=== PATIENT | female | born 1990 | race Caucasian/White ===

== ENCOUNTER 2018-09-16 01:14 | Day surgery (SDC) | payer OTHER ==
[2018-09-16 01:45] VITALS: BMI 35.2
[2018-09-16] MEDS ORDERED: Acetaminophen/Codeine 30-300mg Tablet PO PRN (01:55)
--- NOTE | 2018-09-16 06:58 | ULT ---
LIMITED OB ULTRASOUND: INDICATIONS: patient with abdominal pain and a history of prior uterine surgery. FINDINGS: There is a live intrauterine gestation with cardiac activity of 157 beats per minute documented . The fetus is in a breech lie, and the placenta is located primarily in a posterior position. Amni otic fluid volume is subjectively normal. No evidence of placenta previa. Dedicated anatomic survey not performed. Cervical length is approximately 4.3 cm. No evidence of significant free pelvic fluid. IMPRESSION: Live intrauterine gestation, as described above. As necessary, continued imaging followup may be obt ained. POS: [facility]
--- NOTE | 2018-09-16 08:43 | PRG ---
DATE OF SERVICE: 09/16/2018 PRIMARY OB PHYSICIAN: Arnoldo Renee DO [place] CHIEF COMPLAINT: Pelvic pain. HISTORY OF PRESENT ILLNESS: The patient is a 28-year-old, G2, P1 female with an intrauterine at 21 weeks' gestation, who is presenting with sharp abdominal infraumbilical pain when she coughs. The patient reports that she has had this persistent cough for 3 weeks now and has just been started on a Z-Peter by her primary physician today. The patient's concern is the pain that she has been feeling and is worried given her complications to this . The patient reports that she had a surgical intervention for IUD removal last February resulting in an unknown damage to the uterus. It is unclear to the patient exactly what was done , but does report that the surgery took 8 hours to perform. She has seen [facility] and understands that she needs to be delivered between 32 and 34 weeks. She understands that she is at risk for uterine rupture and is worried that the pain as a result of her coughing has evidence that she may be tearing her uterus. The patient reports that when she is not coughing that the pain is absent. She reports the pain is sharp and stabbing. The patient also reports that she has been having some spotting in the last couple of days that she notices couple of clots when she has wiped. The patient denies leakage of fluid. She denies persistent vaginal bleeding. She denies uterine contractions. She denies fever, fall, or trauma. She denies headache or chest pain. She does have some baseline shortness of breath with . She does report nausea with some vomiting that she attributes to her coughing. The patient denies diarrhea or constipation. She denies any new rashes. Denies hip problems, knee problems, or muscle weakness. Denies urinary urgency or frequency. PAST MEDICAL HISTORY: Minerva's thyroid disorder. PAST SURGICAL HISTORY: She has had this laparoscopy converted to laparotomy for removal of migrated IUD with unknown damage to the uterus. SOCIAL HISTORY: Denies drug, alcohol, or tobacco use. ALLERGIES: NO KNOWN DRUG ALLERGIES. OB LABS: Unavailable at the time of dictation. She has a history of preeclampsia with her previous and prior at 34 weeks. REVIEW OF SYSTEMS: Per HPI. PHYSICAL EXAMINATION: VITAL SIGNS: Blood pressure 128/72, heart rate of 96, temperature 98.5. GENERAL: She appears to be in no acute distress. She does appear concerned, worried, and confused. She is alert, oriented, cooperative, and pleasant to interact with. HEAD: Normocephalic, atraumatic. LUNGS: Clear to auscultation bilaterally. HEART: Regular rate and rhythm. ABDOMEN: Soft and gravid. She does have some tenderness to palpation infraumbilically, difficult to assess whether it is musculoskeletal or intraperitoneal. CERVICAL: Has been deferred. heart tracing, Doppler heart tones were present in the 140s. The bedside ultrasound was performed and final report not available. In images seen by myslef the fetus was breech with normal fluid appearing and no free fluid extrauterine and with what appears to be a completely intact normal uterine wall. She does have a visible scar where the likely occured. ASSESSMENT AND PLAN: The patient is a 28-year-old G2, P1 female with an intrauterine at 21 weeks with a persistent cough for the last 3 weeks, just started on azithromycin today with pain associated with cough. Pain by history is most consistent with musculoskeletal pain. There is no evidence of labor for dehiscence or by ultrasound or any events visible by ultrasound. Fetus appears to be reassuring visibly. The patient was given 2 Tylenol No. 3 for cough suppression, which seems to have helped a lot with her coughing. The patient has been given reassurance based on findings today. She has been given a prescription of Tylenol No. 3, #15, to be taken at home as needed 1 to 2 tablets q.4 hours for cough. She has been counselled to continue on her antibiotics. She also has instructions to keep her appointment with Dr. Renee and to seek medical attention should she experience worsening bleeding or pain, should this cough be related to an infectious process, treatable by azithromycin, she should start feeling much better from that standpoint in the next few days. Job ID: [id number] [facility]
== END 2018-09-16 03:40 | disposition home health service (06) ==
LOC: L&D/OP 01:14
PROVIDERS: ATTEND Obstetrics & Gynecology
DX: O99.89 Other specified diseases and conditions complicating pregnancy, childbirth and the puerperium (principal); R10.2 Pelvic and perineal pain; R05 Cough; O32.1XX0 Maternal care for breech presentation, not applicable or unspecified; O99.283 Endocrine, nutritional and metabolic diseases complicating pregnancy, third trimester; E06.3 Autoimmune thyroiditis; Z3A.21 21 weeks gestation of pregnancy; Z98.890 Other specified postprocedural states
CPT/HCPCS: 76815; 99283

== ENCOUNTER 2018-09-22 12:34 | Outpatient (CLI) | payer OTHER ==
--- NOTE | 2018-09-22 13:10 | RAD ---
PA AND LATERAL VIEWS OF THE CHEST: HISTORY: Cough. FINDINGS: The heart size is normal. The lungs are expanded without focal areas of consolidation, pneumothorace s, or pleural effusions. No acute osseous abnormalities are seen. IMPRESSION: No radiographic evidence of acute cardiopulmonary process. POS: [facility]
== END 2018-09-22 12:35 | disposition home or self-care (01) ==
LOC: BICRAD 12:34
PROVIDERS: ATTEND Obstetrics & Gynecology
DX: R05 Cough (principal)
CPT/HCPCS: 71046

== ENCOUNTER 2018-12-01 09:58 | Outpatient (CLI) | payer OTHER ==
--- NOTE | 2018-12-01 10:28 | RAD ---
EXAM: Chest PA and lateral: HISTORY: Dyspnea COMPARISON: 09/22/2018 FINDINGS: Heart size:Within normal limits. Lungs:Clear of acute process. No confluent pneumonia, overt edema, pleural effusion, or other acute process. IMPRESSION: No significant acute intrathoracic disease. Stable exam.
== END 2018-12-01 09:59 | disposition home or self-care (01) ==
LOC: RAD 09:58
PROVIDERS: ATTEND Internal Medicine
DX: R06.00 Dyspnea, unspecified (principal)
CPT/HCPCS: 71046

== ENCOUNTER 2018-12-16 11:45 | Day surgery (SDC) | payer OTHER ==
[2018-12-16 12:32] VITALS: BMI 39.0
[2018-12-16 12:39] LABS: Amnisure Internal Control QC ACCEPTABLE (ACCEPTABLE); Amnisure Test No Membranes Rupture (No Rupture)
[2018-12-16] MEDS ORDERED: hydrALAZINE 20 MG/ML VIAL SLOW IVP PRN (13:56)
[2018-12-16] MEDS ORDERED: Lactated Ringer's 1,000 ML IV SCH ×2 (14:00)
[2018-12-16 14:16] VITALS: BP 105/64; TEMP 98.9
--- NOTE | 2018-12-16 14:59 | PRG ---
DATE OF SERVICE: 12/16/2018 REASON FOR PRESENTATION: A 34 weeks gestation with nausea, vomiting, and possible leakage of fluid with abdominal pain. HISTORY OF PRESENT ILLNESS: Ms Devin Tolbert is a 28-year-old 2, para 1, previous x1, who presents complaining of nausea and vomiting for 3 days on occasion not continuously, leaking fluid for 2 months and abdominal pain. She seemed quite uncomfortable on presentation, but this resolved during her presentation here. LINE WALKER HISTORY: for preeclampsia at 34 weeks 5 pounds. Previous . Blood type O positive. Antibody negative. Pap negative. Rubella immune. VDRL nonreactive. Hepatitis B, GC, and chlamydia negative. The patient has had nausea throughout her . Previous was for removal of IUD at time of . PAST MEDICAL HISTORY: Asthma. PAST SURGICAL HISTORY: and IUD removal. ALLERGIES: DENIES. MEDICATIONS: 1. vitamins. 2. Montelukast. 3. Zofran. SOCIAL HISTORY: Denies tobacco, alcohol, or drug use. FAMILY HISTORY: Noncontributory. REVIEW OF SYSTEMS: Noncontributory. PHYSICAL EXAMINATION: GENERAL: White female, no acute distress after 1 L IV fluids. VITAL SIGNS: Blood pressure 128/72, pulse 85, respirations 18, and temperature 98.6. HEENT: Within normal limits. LUNGS: Clear to auscultation bilaterally. HEART: Regular rhythm. ABDOMEN: Soft and nontender with only occasional uterine irritability noted. Fundal height of 34 cm. FHTs 130s to 140s. VULVA: Without lesions. VAGINA: Discharge cervix, soft, closed, long, cephalic presentation. EXTREMITIES: No clubbing, cyanosis, or edema. AmniSure was negative. IMPRESSION AND PLAN: The patient received approximately 0.5 L of lactated Ringer IV fluids. She had impressive recovery. Feeling better with no contractions and improved nausea. She is discharged home. Continue on the Zofran. ER precautions. Job ID: [id number]
== END 2018-12-16 14:17 | disposition home health service (06) ==
LOC: L&D/OP 11:45
PROVIDERS: ATTEND Obstetrics & Gynecology
DX: O21.2 Late vomiting of pregnancy (principal); O99.89 Other specified diseases and conditions complicating pregnancy, childbirth and the puerperium; N89.8 Other specified noninflammatory disorders of vagina; R10.9 Unspecified abdominal pain; O99.513 Diseases of the respiratory system complicating pregnancy, third trimester; J45.909 Unspecified asthma, uncomplicated; Z3A.34 34 weeks gestation of pregnancy; Z79.899 Other long term (current) drug therapy
CPT/HCPCS: 84112; 96360; 96361; 99283

== ENCOUNTER 2019-01-03 05:16 | Inpatient (IN) | payer OTHER ==
[2019-01-03] MEDS ORDERED: Bicitra 30 ML UDCUP PO SCH (05:55)
[2019-01-03] MEDS ORDERED: hydrALAZINE 20 MG/ML VIAL SLOW IVP PRN ×2 (05:55→11:51)
[2019-01-03] MEDS ORDERED: CEFAZOLIN 2 GM in Premix Bag 1 BAG IVPB SCH (05:55)
[2019-01-03] MEDS ORDERED: Promethazine HCl 25 MG/ML VIAL IM PRN ×3 (05:55→12:34)
[2019-01-03] MEDS ORDERED: Ondansetron PF 4 MG/2 ML Vial IVP PRN ×3 (05:55→12:34)
[2019-01-03 06:08] LABS: Hemoglobin 11.9 g/dL (12.0-16.0); Mean Corpuscular HGB CONC 34.5 g/dL (32.0-36.0); Mean Corpuscular Hemoglobin 28.7 pg (27.0-31.0); Mean Corpuscular Volume 83.3 fL (78.0-98.0); Mean Platelet Volume 7.7 fL (7.4-10.4); Platelet Count 188 thou/uL (130-400); RBC Distribution Width 12.2 % (11.5-14.5); Red Blood Cell (RBC) Count 4.14 mill/uL (4.20-5.40); White Blood Cell (WBC) Count 8.2 thou/uL (4.8-10.8)
[2019-01-03 06:13] VITALS: BMI 38.8
[2019-01-03] MEDS: Lactated Ringer's 1,000 ML IV SCH ×4 (06:20→19:35)
[2019-01-03 06:47] LABS: HBSAg Index 0.25 S/CO (0-0.99); Hep B Surf Ag Non-Reactive S/CO (NonReactive)
[2019-01-03 06:52] LABS: Syphilis Antibody Nonreactive (Nonreactive); Syphilis Antibody Index 0.08 S/CO (<1.00 Non-Reactive)
[2019-01-03] MEDS ORDERED: Promethazine HCl 25 MG SUPP PR PRN ×2 (07:18→12:34)
[2019-01-03] MEDS ORDERED: Naloxone HCl 0.4 mg/ml Vial IVP PRN ×2 (07:18)
[2019-01-03] MEDS ORDERED: Meperidine HCl/PF 25 MG/ML VIAL SLOW IVP PRN (07:18)
[2019-01-03] MEDS ORDERED: diphenhydrAMINE 50 MG/ML VIAL IVP PRN ×2 (07:18→12:34)
[2019-01-03] MEDS ORDERED: L&D-Morphine 4 MG/ML VIAL SLOW IVP PRN (07:18)
[2019-01-03] MEDS ORDERED: Ondansetron HCl/PF 4 MG/2 ML Vial IVP PRN (07:18)
[2019-01-03] MEDS ORDERED: HYDROmorphone 2 MG/ML VIAL SLOW IVP PRN (07:18)
[2019-01-03] MEDS ORDERED: Naloxone HCl 0.4 mg/ml Vial IV PRN ×4 (07:18→12:34)
[2019-01-03] MEDS ORDERED: Ketorolac Tromethamine 30 MG/ML VIAL IVP PRN (07:18)
[2019-01-03] MEDS ORDERED: MORPHINE 5 MG/10 ML PF VIAL ONE (07:20)
[2019-01-03] MEDS ORDERED: Oxytocin 10 UNITS/ML VIAL ONE (07:20)
[2019-01-03] MEDS ORDERED: Communication Order-Pharmacy FS SCH (07:30)
[2019-01-03] MEDS ORDERED: Ketorolac Tromethamine 30 MG/ML VIAL IVP SCH (07:30)
[2019-01-03] MEDS ORDERED: Phenylephrine HCL 10 MG/ML VIAL ONE (07:40)
[2019-01-03] MEDS ORDERED: Atropine Sulfate 0.4 mg/1 ml Vial ONE (07:56)
--- NOTE | 2019-01-03 08:32 | PDOC.OPDEL ---
OB Operative/Delivery Note Delivery Dr/Surgeon: LANIE Assist: ARIC Pre-Delivery Diagnosis: scheduled section (37 weeks for hx of uterine surgery) Procedure/Post Delivery Dx: repeat low transverse CS Weeks gestation: 37 Anesthesia: spinal - Findings A Sex: male Weight: 6 lb 15 oz - 1 min: 8 - 5 min: 9 - Additional Findings/Plan Placenta delivered: spontaneous findings: low transverse hysterotomy without extension, normal uterus, normal tubes, normal ovaries Estimated blood loss: 600ml Post delivery plan: routine recovery
[2019-01-03] MEDS ORDERED: Ketorolac Tromethamine 30 MG/ML VIAL ONE (10:47)
[2019-01-03] MEDS ORDERED: NS / Oxytocin 40 units/1000ml 1,000 ML ONE (10:59)
[2019-01-03] MEDS ORDERED: Lanolin Ointment 7 GM TUBE TOP PRN (11:51)
[2019-01-03] MEDS ORDERED: Measles/Mumps/Rubella 10 MCG/0.5 ML VIAL SC ONE (11:51)
[2019-01-03] MEDS ORDERED: NS / Oxytocin 40 units/1000ml 1,000 ML IV SCH (11:51)
[2019-01-03] MEDS ORDERED: Bisacodyl 10 MG SUPP PR PRN (11:51)
--- NOTE | 2019-01-03 12:23 | OP ---
DATE OF PROCEDURE: 01/03/2019 PREOPERATIVE DIAGNOSES: 1. A 28-year-old, G2, P0-1-0-1 at 37 weeks. 2. Previous section. 3. History of uterine surgery via laparotomy for intrauterine device removal. 4. Recommended delivery at 37 weeks by [facility]aternal [facility]. POSTOPERATIVE DIAGNOSIS: Status post repeat low transverse section at 37 weeks. PROCEDURE PERFORMED: Repeat low-transverse section. HEALTHCARE BUSINESS ANALYST: Joann Luna PA-C COMPLICATIONS: None. EBL: 600 mL. QBL: Pending. ANESTHESIA: Spinal per Dr. Daly. FINDINGS: 1. Vigorous male , Apgars and weight pending at the time of dictation. 2. Low transverse hysterotomy without extension. 3. Mild adhesive disease noted between the fascia and the rectus abdominis. 4. No intraabdominal adhesive disease noted. 5. Abnormal contour of the uterine serosa with hypertrophy noted in the midline, but no uterine defect noted as suspected site of previous uterine surgery for IUD removal. 6. Normal-appearing tubes and ovaries bilaterally. DESCRIPTION OF PROCEDURE: The patient was taken back to the OR with IV fluids running. When she was in the OR, spinal anesthesia was obtained. The patient was then placed in dorsal supine position with left lateral tilt. Abdul catheter was placed using sterile technique. Prophylactic antibiotics were administered prior. The abdomen was then prepped and draped in normal fashion for section. The abdomen was tested and anesthesia was found to be adequate. After the surgeons were gowned and gloved, and the anesthesia was tested, a Pfannenstiel skin incision was made with a scalpel through a previous Pfannenstiel skin incision scar. The skin incision was carried down with a scalpel through the subcutaneous tissue to the fascia. Once the fascia was reached, it was incised in the midline and extended superolaterally using curved Lanier scissors. Shahida clamps were then placed at the superior border of the fascia, which was sharply and bluntly dissected off the rectus abdominis muscles in both caudad and cephalad direction allowing adequate space for delivery of the . The rectus muscles were then tented up off the abdomen. The peritoneum was grasped with hemostats and entered by fine dissection using Metzenbaum scissors. Once the peritoneum was entered, it was bluntly stretched. An Devin O retractor was placed into the peritoneal cavity for retraction, visualization, and protection of the wound. A bladder flap was created using Metzenbaum scissors and the bladder was dissected away from the planned hysterotomy site. A low-transverse hysterotomy was made with a scalpel. Clear fluid was noted on entry to the membranes. The infant was then delivered through the hysterotomy without difficulty. The nose and mouth were suctioned. The cord was doubly clamped and cut. The was handed off to special care nurse in attendance. Cord blood was collected. The placenta was delivered. The uterus was temporarily exteriorized, cleared off clot and debris with a clean dry sponge, massaged, and return to the uterine cavity. The hysterotomy was inspected with no extension noted. The hysterotomy was then closed with Monocryl suture in a running locked fashion. After the hysterotomy was closed, it was inspected and no areas of bleeding were noted. The hysterotomy and paracolic gutters were then irrigated and suctioned dry. No areas of bleeding were noted. The hysterotomy was again inspected dry with no bleeding noted. The Devin O retractor was removed from the abdominal cavity and the first count was correct. The rectus abdominis muscles and the rectus fascia were inspected with a small area of bleeding noted at the rectus fascia on the patient's left side at the superior edge of the fascia. The [id number] chromic suture was placed with hemostasis noted. After the rectus muscle and fascia were then inspected again with no areas of bleeding noted. The fascia was then reapproximated with PDS suture in a running fashion from corner to corner and tied separately in the midline. After the fascia was reapproximated, the subcutaneous tissue was irrigated and suction dried. Any small areas of bleeding were controlled with Bovie cauterization. The subcutaneous tissue was reapproximated with plain gut suture. The skin was closed with 4-0 Monocryl and dressed with Dermabond dressing. The uterus was noted to be firm. The patient tolerated the procedure well. There were no complications. The final count was correct. Job ID: [id number]
[2019-01-03] MEDS ORDERED: NO PO,IM,IV OR SC NARCOTICS FOR 12HR EXCEPT BY ANESTHESIA PO SCH (12:34)
[2019-01-03] MEDS ORDERED: Hydrocerin (Eucerin) Cream 120 gm Jar TOP PRN (12:34)
[2019-01-03] MEDS: Ibuprofen 800 MG TAB PO SCH ×2 (13:20→22:42)
[2019-01-03] MEDS: Ketorolac Tromethamine 30 MG/ML VIAL IVP PRN ×2 (16:10→21:56)
[2019-01-03] MEDS ORDERED: Morphine 2 MG/ML SYRINGE SLOW IVP PRN (16:20)
[2019-01-03] MEDS: Ferrous Sulfate 325 MG TAB PO SCH (22:42)
[2019-01-03] MEDS: Docusate Calcium (SURFAK) 240 MG CAP PO SCH (22:42)
[2019-01-04] MEDS: diphenhydrAMINE 25 MG CAP PO PRN ×2 (00:19→09:39)
[2019-01-04] MEDS: HYDROcodone/Acetaminophen 5/325 mg Tablet PO PRN ×3 (04:01→18:22)
[2019-01-04] MEDS: Simethicone Chewable 80 MG TAB PO PRN ×2 (04:02→20:45)
[2019-01-04] MEDS: Ibuprofen 800 MG TAB PO SCH ×3 (05:19→21:25)
[2019-01-04 06:43] LABS: Hemoglobin 10.7 g/dL (12.0-16.0); Mean Corpuscular HGB CONC 33.1 g/dL (32.0-36.0); Mean Corpuscular Hemoglobin 28.2 pg (27.0-31.0); Mean Corpuscular Volume 85.4 fL (78.0-98.0); Mean Platelet Volume 8.1 fL (7.4-10.4); Platelet Count 154 thou/uL (130-400); RBC Distribution Width 12.4 % (11.5-14.5); White Blood Cell (WBC) Count 8.2 thou/uL (4.8-10.8)
--- NOTE | 2019-01-04 08:31 | PDOC.PP ---
Post Progress Note Post Day #: 1 Subjective: doing well, ambulating to NICU well, no concerns PO intake tolerated: yes Flatus: yes Ambulation: yes Vital Signs (12 hours) Temp Pulse Resp BP Pulse Ox 01/04/19 08:00 98.4 F 59 L 14 97/64 95 01/04/19 04:00 98.6 F 83 20 110/52 L 96 01/03/19 23:53 98.4 F 68 20 100/65 96 Weight Weight 199 lb - Physical Examination General: NAD Respiratory: non-labored breathing Abdominal: no distention Neurological: no gross focal deficits Psychiatric: A&Ox3, normal affect Result Diagrams: 01/04/19 06:02 Additional Labs: Post Labs Blood Type O POSITIVE 01/03/19 06:40 Hep Bs Antigen Non-Reactive S/CO (NonReactive) 01/03/19 05:56 (1) 37 weeks gestation of Code(s): Z3A.37 - 37 WEEKS GESTATION OF Status: Acute (2) History of uterine scar from previous surgery Code(s): Z98.891 - HISTORY OF UTERINE SCAR FROM PREVIOUS SURGERY Status: Acute (3) Status post repeat low transverse section Code(s): Z98.891 - HISTORY OF UTERINE SCAR FROM PREVIOUS SURGERY Status: Acute - Assessment/Plan POD1 doing well, pain controlled, will transition to intranasal toradol today or tomorrow.
[2019-01-04] MEDS: Ferrous Sulfate 325 MG TAB PO SCH ×2 (09:15→21:24)
[2019-01-04] MEDS: Docusate Calcium (SURFAK) 240 MG CAP PO SCH ×2 (09:39→21:25)
[2019-01-04] MEDS: Prenatal Vitamin 1 TAB PO SCH (09:39)
[2019-01-05] MEDS: HYDROcodone/Acetaminophen 5/325 mg Tablet PO PRN ×5 (03:18→21:26)
[2019-01-05] MEDS: Simethicone Chewable 80 MG TAB PO PRN ×3 (03:19→19:31)
[2019-01-05] MEDS: Ibuprofen 800 MG TAB PO SCH ×3 (06:02→21:26)
[2019-01-05] MEDS: Docusate Calcium (SURFAK) 240 MG CAP PO SCH ×2 (09:34→19:31)
[2019-01-05] MEDS: Prenatal Vitamin 1 TAB PO SCH (09:34)
[2019-01-05] MEDS: Ferrous Sulfate 325 MG TAB PO SCH ×2 (12:03→22:04)
--- NOTE | 2019-01-05 12:30 | PDOC.PP ---
Post Progress Note Post Day #: 2 Subjective: ambulating well to NICU, some discomfort controlled w oral meds, left SPRIX at home and has not tried it yet, tolerating reg diet PO intake tolerated: yes Flatus: yes Ambulation: yes Vital Signs (12 hours) Temp Pulse Resp BP Pulse Ox 01/05/19 08:00 98.1 F 66 20 114/77 95 Weight Weight 199 lb - Physical Examination General: NAD Respiratory: non-labored breathing Abdominal: no distention Fundus firm & at: below umb Skin: CS incision dry & intact Psychiatric: A&Ox3, normal affect Result Diagrams: 01/04/19 06:02 Additional Labs: Post Labs Blood Type O POSITIVE 01/03/19 06:40 Hep Bs Antigen Non-Reactive S/CO (NonReactive) 01/03/19 05:56 (1) 37 weeks gestation of Code(s): Z3A.37 - 37 WEEKS GESTATION OF Status: Acute (2) History of uterine scar from previous surgery Code(s): Z98.891 - HISTORY OF UTERINE SCAR FROM PREVIOUS SURGERY Status: Acute (3) Status post repeat low transverse section Code(s): Z98.891 - HISTORY OF UTERINE SCAR FROM PREVIOUS SURGERY Status: Acute - Assessment/Plan POD2 doing well after scheduled RCS. Baby in NICU. Possible DC tomorrow.
[2019-01-06] MEDS: HYDROcodone/Acetaminophen 5/325 mg Tablet PO PRN ×3 (01:07→09:59)
[2019-01-06] MEDS: Ibuprofen 800 MG TAB PO SCH (05:58)
[2019-01-06 07:49] VITALS: BP 108/70; TEMP 98.2
[2019-01-06] MEDS: Simethicone Chewable 80 MG TAB PO PRN (09:58)
[2019-01-06] MEDS: Prenatal Vitamin 1 TAB PO SCH (09:59)
[2019-01-06] MEDS: Docusate Calcium (SURFAK) 240 MG CAP PO SCH (09:59)
--- NOTE | 2019-01-06 10:13 | PDOC.PP ---
Post Progress Note Post Day #: 3 Subjective: POD3, ambulating to NICU, tolerating diet, pain controlled w oral meds PO intake tolerated: yes Flatus: yes Ambulation: yes Vital Signs (12 hours) Temp Pulse Resp BP Pulse Ox 01/06/19 08:00 96 01/06/19 07:48 98.2 F 59 L 20 108/70 Weight Weight 199 lb - Physical Examination General: NAD Respiratory: non-labored breathing Abdominal: no distention Skin: CS incision dry & intact, no rash Neurological: no gross focal deficits Psychiatric: A&Ox3, normal affect Result Diagrams: 01/04/19 06:02 Additional Labs: Post Labs Blood Type O POSITIVE 01/03/19 06:40 Hep Bs Antigen Non-Reactive S/CO (NonReactive) 01/03/19 05:56 (1) 37 weeks gestation of Code(s): Z3A.37 - 37 WEEKS GESTATION OF Status: Acute (2) History of uterine scar from previous surgery Code(s): Z98.891 - HISTORY OF UTERINE SCAR FROM PREVIOUS SURGERY Status: Acute (3) Status post repeat low transverse section Code(s): Z98.891 - HISTORY OF UTERINE SCAR FROM PREVIOUS SURGERY Status: Acute - Assessment/Plan POD3 sp RCS for hx of uterine surgery and early term delivery recommended. Baby still in NICU. Discussed DC to [facility] today. Use of post op pain medications reviewed with Sprix intranasa toradol as first line and [place] for breakthrough only. FU one week my office.
[2019-01-06] MEDS: Ferrous Sulfate 325 MG TAB PO SCH (10:23)
== END 2019-01-06 12:40 | disposition home or self-care (01) | DRG 788 ==
LOC: L&D 05:16 → 3SW 11:51
PROVIDERS: ADMIT Obstetrics & Gynecology; ATTEND Obstetrics & Gynecology
PROC: 10D00Z1 Extraction of Products of Conception, Low, Open Approach (ICD-10-PCS; principal; 2019-01-04)
DX: O34.211 Maternal care for low transverse scar from previous cesarean delivery (principal); Z3A.37 37 weeks gestation of pregnancy; Z37.0 Single live birth
CPT/HCPCS: 36415; 51702; 85027; 86780; 86850; 86900; 86901; 87340; J0461; J0690; J1885; J2270; J2274; J2370; J2590; Q0163